=== PATIENT | male | born 1940 | race African-American/Black ===

== ENCOUNTER 2017-03-18 03:42 | Emergency (ER) | payer MEDICARE, OTHER ==
[~2017-03-18] VITALS: Ht 177.8 cm; Wt 96.0 kg
[2017-03-18] MEDS ORDERED: MORPHINE SULFATE 4 MG/ML CPJ (NOT FOR IM USE) IV ONE (04:45)
[2017-03-18] MEDS ORDERED: KETOROLAC 15MG/ML VIAL IV ONE (04:45)
[2017-03-18] MEDS ORDERED: ONDANSETRON HCL 4MG/2ML VIAL IV ONE (04:45)
[2017-03-18 05:23] LABS: BASOPHILS % 0.6 % (0.0-2.0); EOSINOPHILS % 0.5 % (0.0-5.0); HEMATOCRIT. 38.2 % (42.0-52.0); HEMOGLOBIN. 12.8 g/dL (14.0-18.0); LYMPHOCYTES % 14.4 % (20.0-50.0); MEAN CORPUSCULAR HEMOGLOBIN 28.9 pg (28.0-32.0); MEAN CORPUSCULAR VOLUME 86.6 fL (80.0-94.0); MEAN PLATELET VOLUME 7.2 fl (7.4-10.4); MONOCYTES % 6.6 % (2.0-8.0); NEUTROPHILS % 77.9 % (40.0-76.0); PLATELET 240 x1000/uL (130-400); RED BLOOD CELL COUNT 4.41 mill/uL (4.7-6.1); RED CELL DISTRIBUTION WIDTH 13.6 % (11.6-14.6)
[2017-03-18 05:35] LABS: CARBON DIOXIDE 27 mEq/L (21-32); CHLORIDE 103 mEq/L (98-107); TROPONIN I < 0.02 ng/mL (0.00-0.04)
[2017-03-18] MEDS ORDERED: ESMOLOL 2500MG PREMIX 250 ML IV ONE ×4 (06:45→10:15)
[2017-03-18] MEDS ORDERED: NITROGLYCERIN OINT 1GM/INCH UDPKT TD ONE (10:00)
[2017-03-18 10:36] VITALS: BP 140/97
[2017-03-18] MEDS ORDERED: SODIUM CHLORIDE 0.9% 10ML VIAL ONE (13:29)
[2017-03-18] MEDS ORDERED: IOHEXOL-350 100 ML BOTTLE ONE (13:29)
== END 2017-03-18 10:52 | disposition short-term general hospital (02) ==
LOC: ER 03:42
DX: M25.512 Pain in left shoulder (principal); R07.2 Precordial pain; I11.9 Hypertensive heart disease without heart failure; I10 Essential (primary) hypertension; E78.00 Pure hypercholesterolemia, unspecified; Z95.5 Presence of coronary angioplasty implant and graft
CPT/HCPCS: 36415; 71010; 71275; 74174; 80053; 84484; 85025; 93005; 96365; 96366; 96375; 99291; A4216; J2270; J2405; J3490; Q9967